=== PATIENT | female | born 1940 | race Caucasian/White ===

== ENCOUNTER → 2019-12-01 11:19 | Outpatient (CLI) | payer MEDICARE, OTHER, SELFPAY ==
[2019-12-01 12:37] LABS: Creatinine Urine Random 61.2 mg/dL
[2019-12-01 12:44] LABS: Alanine Aminotransferase 16 IU/L (<35); Albumin 4.3 g/dL (3.5-5.0); Albumin Globulin Ratio 1.8 (1.0-2.8); Alkaline Phosphatase 75 U/L (38-126); Aspartate Aminotransferase 23 IU/L (14-36); Bilirubin Total 0.8 mg/dL (0.2-1.3); Blood Urea Nitrogen 16 mg/dL (7-17); Calcium 9.8 mg/dL (8.4-10.2); Carbon Dioxide 30 mmol/L (22-32); Chloride 93 mmol/L (98-107); Cholesterol 209 mg/dL (140-199); Estimated Glomerular Filt Rate > 60.0 mL/min (>60); Globulin 2.4 g/dL (1.7-4.1); Glucose 94 mg/dL (80-110); HDL Cholesterol 75 mg/dL (40-60); HEMOLYSIS < 15 (0-50); LDL Cholesterol Calculated 119 mg/dL (<100); Potassium 5.4 mmol/L (3.4-5.1); Sodium 132 mmol/L (137-145); Total Protein 6.7 g/dL (6.3-8.2); Triglycerides 73 mg/dL (35-150)
[2019-12-01 12:55] LABS: Microalbumi Creatinin Ratio Ur 535.9 ug/mg CR (<30); Microalbumin Urine Random 32.8 mg/dL (0-1.6)
[2019-12-01 13:03] LABS: Free T3, Triiodothyronine Free 3.07 pg/mL (2.77-5.27); Free T4, Direct Thyroxine 0.95 ng/dL (0.78-2.19)
[2019-12-01 13:16] LABS: Thyroid Stimulating Hormone 2.73 uIU/mL (0.47-4.68)
== END ==
PROVIDERS: PCP Nurse Practitioner; Visit Provider Nurse Practitioner
DX: E78.5 Hyperlipidemia, unspecified (principal); I10 Essential (primary) hypertension; Z79.899 Other long term (current) drug therapy
CPT/HCPCS: 36415; 80053; 80061; 82043; 82570; 84439; 84443; 84481

== ENCOUNTER → 2020-03-22 09:39 | Outpatient (CLI) | payer MEDICARE, OTHER, SELFPAY ==
[2020-03-22 10:51] LABS: Cholesterol 188 mg/dL (140-199); HDL Cholesterol 82 mg/dL (40-60); LDL Cholesterol Calculated 95 mg/dL (<100); Triglycerides 53 mg/dL (35-150)
== END ==
PROVIDERS: PCP Nurse Practitioner; Referring Provider Nurse Practitioner; Visit Provider Nurse Practitioner
DX: E78.5 Hyperlipidemia, unspecified (principal); I10 Essential (primary) hypertension
CPT/HCPCS: 36415; 80061

== ENCOUNTER 2020-04-10 21:16 | Emergency (ER) | payer MEDICARE, OTHER, SELFPAY ==
[2020-04-10 21:36] VITALS: BP 222/91; PULSE 92; RESP 16; TEMP 36.5; O2SAT 97; BMI 26.4
[2020-04-10 21:45] VITALS: BP 211/82
[2020-04-10 22:23] LABS: RBC Urine None Seen (0-5/HPF)
--- NOTE | 2020-04-10 22:33 | ED.GENADULT ---
HPI - General Adult General Chief complaint: Urogenital-Female Stated complaint: Trying to Get Off Prescription Meds, High BP Time Seen by Provider: 04/10/20 22:08 Source: patient Mode of arrival: Ambulatory Limitations: no limitations History of Present Illness HPI narrative: Patient is a 79-year-old female. Somewhat difficult to obtain history from her and exactly why she is here in the emergency department. She states that the reason that she came into the emergency department speak she is having quite a bit of burning sensation in her vagina. This does not appear to be a new issue. There are multiple notes in the EMR from with her primary doctor and also armature tester for this issue. She has been prescribed estrogen cream and also Desipramine. She states she does not know why she was prescribed this last medication. She states she has talked with her armature tester who prescribed this medication and appears that she is being weaned off of this medication so she does not stop it abruptly. When asked or brought her to the emergency department this evening she states that it is the vaginal itching. She denies any dysuria. No back pain. No change of bowel habits. No fevers. She seems very fixated on why she had been prescribed the Desipramine in the 1st place. No chest pain or shortness of breath no headache. Related Data Home Medications Medication Instructions Recorded Confirmed aspirin 81 mg tablet,delayed 81 mg PO DAILY 10/14/19 02/16/20 release calcium vit d PO BID 10/14/19 02/16/20 flaxseed oil 1,000 mg capsule 2,000 mg PO DAILY cap 10/14/19 02/16/20 pravastatin 40 mg tablet 20 mg PO DAILY tab 01/11/20 02/16/20 Previous Rx's Medication Instructions Recorded lisinopril 40 mg tablet 40 mg PO DAILY #90 tab 12/07/19 docusate sodium 100 mg capsule 100 mg PO BID PRN #60 cap 01/11/20 estradiol 2 gram VAG .COMPLEX #42.5 gram 02/05/20 desipramine 10 mg tablet 10 mg PO BEDTIME 30 Days #30 tab 03/25/20 lidocaine 1 applictn TOP BID-QID PRN #113 04/10/20 gram Allergies Allergy/AdvReac Type Severity Reaction Status Date / Time No Known Drug Allergies Allergy Verified 02/16/20 09:53 Review of Systems Constitutional Constitutional: Denies fever(s) and Denies headache(s) ENT Ears, Nose, Mouth, and Throat: Denies headache(s) Cardiovascular Cardiovascular: Denies chest pain and Denies dyspnea Respiratory Respiratory: Denies dyspnea Gastrointestinal Gastrointestinal: Denies abdominal pain and Denies vomiting Genitourinary Genitourinary: Denies flank pain, Denies urinary hesitancy and Denies vaginal discharge Comments: Vaginal itching Musculoskeletal Musculoskeletal: Denies back pain and Denies arthralgias Integumentary/Breasts Skin/Breast: Denies rash Neurologic Neurologic: Denies behavioral changes and Denies headache(s) Psychiatric Psychiatric: Denies behavioral changes Hematologic/Lymphatic Hematologic/Lymphatic: Denies easy bleeding and Denies easy bruising Patient History Medical History Hyperlipidemia (Chronic) Measles (Resolved) Mumps (Resolved) Restless leg syndrome (Chronic ~2017) Skin cancer (Chronic) Social History Smoking Status: Former smoker Smoking Status: Former smoker Exam Initial Vital Signs Initial Vital Signs: Vital Signs Temperature 97.7 F 04/10/20 21:36 Pulse Rate 92 H 04/10/20 21:36 Respiratory Rate 16 04/10/20 21:36 Blood Pressure 222/91 H 04/10/20 21:36 Pulse Oximetry 97 04/10/20 21:36 Const General: cooperative and comfortable Resp Effort & Inspection: normal respiratory effort Cardio Rate: regular rate GI Inspection: non-distended Skin Lesions: no lesions Rashes: no rashes Neuro General: alert and awake Speech: speech normal Extrem General: normal to inspection Psych Appearance: grossly normal Course Orders Ordered: ED Orders 04/10/20 21:52 Ictotest Urine Stat Urine Culture Stat Urine Microscopic Stat Vital Signs Vital signs: Vital Signs - 8 hr 04/10/20 21:36 04/10/20 21:45 Temperature 97.7 F Pulse Rate 92 H Respiratory Rate 16 Blood Pressure 222/91 H Blood Pressure [Left Arm] 211/82 H Pulse Oximetry 97 Medical Decision Making Medical Records Medical records reviewed: Yes I reviewed the patient's medical records. Lab Data Lab results reviewed: Yes I reviewed the patient's lab results. Labs: Lab Results 04/10/20 Range/Units 21:52 Ur Bilirubin Confirm Negative (Negative) Urine RBC None seen (0-5/HPF) Urine WBC 10-30/hpf H (0-5/HPF) Urine Bacteria Few (2-10) H (None) Ur Culture Indicated? Specimen cultured Micro UA Comment * Urine Dip Bedside Urine Glucose 100 mg/dl Bedside Urine Bilirubin ++ 2 Bedside Urine Ketone +/- 5 Urine Specific [place] 1.030 Bedside Urine Occult Blood +/- Bedside Urine pH 5.5 Bedside Urine Protein + 30 Bedside Urine Urobilinogen - Negative Bedside Urine Nitrite - Negative Bedside Urine Leukocytes ++ 125 Esterase Point of care testing: Urine Dip Bedside Urine Glucose 100 mg/dl Bedside Urine Bilirubin ++ 2 Bedside Urine Ketone +/- 5 Urine Specific [place] 1.030 Bedside Urine Occult Blood +/- Bedside Urine pH 5.5 Bedside Urine Protein + 30 Bedside Urine Urobilinogen - Negative Bedside Urine Nitrite - Negative Bedside Urine Leukocytes ++ 125 Esterase MDM Narrative Medical decision making narrative: Had bacteria and white blood cells in her urinalysis however she is not describing any dysuria. The vaginal itching that brought her into the emergency department today per her admission is not new. I am unsure but has worsened recently. I feel we should wait for the urine culture to results before treating her with any antibiotics. Again it is very difficult to distinguish what brought her into the emergency department. She seemed very fixated this medication that which she states was prescribed to her by her armature tester provider for the itching that she has been having. It also appears that this medication is being weaned for her to stop it but given the nature the medication and should not be stopped abruptly. I did discuss this with her. She was also wondering why she had not had a referral in to see Urology given her symptoms. I informed her that she should talk with her primary doctor regarding this. Informed her that it sounded like she is being weaned off the medicine appropriately and she should continue to do this. We did discuss her urine informed her that we will wait for the culture to resolved for treatment any antibiotics. Will send her home with a prescription for lidocaine jelly to see if this does not potentially improve some of her symptoms. She is hypertensive however is not having chest pain or shortness of breath. Feel we can hold on further workup for this. Also feel that we could hold on a pelvic exam given the fact that the presenting symptoms today are not new when she does have documented issues such as a rectocele. Patient expressed understanding and agreement this plan. Discharge Plan Departure Patient Disposition: Home Clinical Impression: Itching of vagina Discharge Date/Time: 04/10/20 22:48 Activity Restrictions/Additional Instructions: Recommend that you take all of your medications as directed. I do recommend that tomorrow you contact your primary provider and also your armature tester provider for a follow-up. Your prescription was electronically transmitted to the [place] pharmacy. Return to the emergency department for any new or worsening symptoms Prescriptions: New lidocaine 4 % gel 1 applictn TOP BID-QID PRN (Reason: pain) Qty: 113 RF: 0 No Action lisinopril 40 mg tablet 40 mg PO DAILY Qty: 90 RF: 0 estradiol 0.01 % (0.1 mg/gram) cream 2 gram VAG .COMPLEX Qty: 42.5 RF: 1 desipramine 10 mg tablet 10 mg PO BEDTIME 30 Days Qty: 30 RF: 0 aspirin [Lo-Dose Aspirin] 81 mg tablet,delayed release (DR/EC) 81 mg PO DAILY RF: 0 flaxseed oil [[place]-3 Flaxseed Oil] 1,000 mg capsule 2,000 mg PO DAILY RF: 0 calcium vit d PO BID RF: 0 pravastatin 40 mg tablet 20 mg PO DAILY RF: 0 docusate sodium [Colace] 100 mg capsule 100 mg PO BID PRN (Reason: constipation) Qty: 60 RF: 11 Referrals: Laurel Bianchi ARNP [Primary Care Provider] -
[2020-04-10 22:36] LABS: Ictotest Urine Negative (Negative); WBC Urine 10-30/HPF (0-5/HPF)
[2020-04-10 22:37] LABS: Bacteria Urine Few (2-10); Culture Indicated Urine Specimen Cultured
== END 2020-04-10 22:48 | disposition home or self-care (01) ==
PROVIDERS: Emergency Provider Emergency Medicine; PCP Nurse Practitioner
DX: L29.2 Pruritus vulvae (principal)
CPT/HCPCS: 81003; 81015; 87086; 99282

== ENCOUNTER → 2020-06-15 10:26 | Outpatient (CLI) | payer MEDICARE, OTHER, SELFPAY ==
--- NOTE | 2020-06-15 10:27 | DI.MG.S_ITS ---
BILATERAL DIGITAL SCREENING MAMMOGRAM 3D/2D WITH CAD: 06/15/2020 CLINICAL: Routine screening. Comparison is made to exams dated: 02/02/2019 mammogram - [facility] and 06/12/2016 mammogram - [facility]. The tissue of both breasts is predominantly fatty. Current study was also evaluated with a Computer Aided Detection (CAD) system. No significant masses, calcifications, or other findings are seen in either breast. There has been no significant interval change. IMPRESSION: NEGATIVE There is no mammographic evidence of malignancy. A 1 year screening mammogram is recommended. This exam was interpreted at Station ID: [id number]. NOTE: For mammograms, a report in lay terms will be sent to the patient. Approximately 15% of breast malignancies will not be visualized mammographically. In the management of a palpable breast mass, a negative mammogram must not discourage biopsy of a clinically suspicious lesion. Electronically Signed By: Denia payne/mary:06/15/2020 16:04:05 letter sent: Normal Exam ACR BI-RADS Category 1: Negative 3341F
== END ==
PROVIDERS: PCP Nurse Practitioner; Referring Provider Nurse Practitioner; Visit Provider Nurse Practitioner
DX: Z12.31 Encounter for screening mammogram for malignant neoplasm of breast (principal)
CPT/HCPCS: 77063; 77067

== ENCOUNTER → 2020-06-27 15:30 | Outpatient (CLI) | payer MEDICARE, OTHER, SELFPAY ==
[2020-06-29 08:13] LABS: Candida species Negative (Negative); Gardnerella vaginalis Negative (Negative); Trichomoas vaginalis Negative (Negative)
== END ==
PROVIDERS: PCP Nurse Practitioner; Visit Provider Obstetrics & Gynecology
DX: N94.9 Unspecified condition associated with female genital organs and menstrual cycle (principal); R32 Unspecified urinary incontinence
CPT/HCPCS: 87077; 87086; 87186; 87480; 87510; 87660

== ENCOUNTER → 2020-10-03 13:20 | Outpatient (CLI) | payer MEDICARE, OTHER, SELFPAY | PROVIDERS: PCP Nurse Practitioner; Referring Provider Nurse Practitioner; Visit Provider Nurse Practitioner | DX: M85.88 Other specified disorders of bone density and structure, other site (principal); Z78.0 Asymptomatic menopausal state; Z87.891 Personal history of nicotine dependence | CPT/HCPCS: 77080 ==

== ENCOUNTER 2020-10-25 09:40 | Emergency (ER) | payer MEDICARE, OTHER, SELFPAY ==
[2020-10-25 09:40] VITALS: BP 196/86; PULSE 88; RESP 16; TEMP 36.6; O2SAT 96
--- NOTE | 2020-10-25 10:01 | ED_ITS ---
HPI - General Adult General Chief complaint: Abdominal Pain Stated complaint: Bowel movement issues Time Seen by Provider: 10/25/20 09:52 Source: patient Mode of arrival: Ambulatory Limitations: no limitations History of Present Illness HPI narrative: 79-year-old female here for evaluation which he states is constipation. States that approximately once a month she gets issues with constipation where she has to take MiraLax for approximately 5 days and then has a bowel movement. She states she has been on MiraLax for 3 days now and she feels like there is a large clump of stool down in her rectum. She has not tried any laxatives. She contacted her primary doctor who could not see her until this afternoon and she was instructed to go to the walk-in clinic we then sent her here to the emergency department. She denies any fevers. No belly pain. No prior abdominal surgeries. No nausea vomiting. Related Data Home Medications Medication Instructions Recorded Confirmed aspirin 81 mg tablet,delayed 81 mg PO DAILY 10/14/19 10/10/20 release calcium vit d PO BID 10/14/19 10/10/20 flaxseed oil 1,000 mg capsule 2,000 mg PO DAILY cap 10/14/19 10/10/20 polyethylene glycol 3350 17 17 gram PO DAILY 06/27/20 10/10/20 gram/dose oral powder Previous Rx's Medication Instructions Recorded estradiol 1 - 2 gram VAG .2-3XW #42.5 gram 09/20/20 lisinopril 40 mg tablet 40 mg PO DAILY #90 tab 09/20/20 pravastatin 40 mg tablet 20 mg PO DAILY #45 tab 09/20/20 varicella-zoster glycoE [id number] 0.5 ml IM ONCE #1 each 09/20/20 adj(PF) 50 mcg/0.5 mL IM susp, kit desipramine 10 mg tablet 10 mg PO BEDTIME #90 tab 09/22/20 amlodipine 5 mg tablet 5 mg PO DAILY #30 tab 10/10/20 Allergies Allergy/AdvReac Type Severity Reaction Status Date / Time lidocaine AdvReac Verified 10/10/20 10:52 Review of Systems Constitutional Constitutional: Denies fever(s) Gastrointestinal Gastrointestinal: Denies abdominal pain, Reports constipation, Denies nausea and Denies vomiting Genitourinary Genitourinary: Denies dysuria Genitourinary: Denies dysuria Musculoskeletal Musculoskeletal: Denies arthralgias and Denies myalgias Integumentary/Breasts Skin/Breast: Denies lesions and Denies rash Neurologic Neurologic: Denies behavioral changes Psychiatric Psychiatric: Denies behavioral changes Patient History Medical History Hyperlipidemia Measles Mumps Osteopenia Restless leg syndrome (~2017) Skin cancer Family History Mother Stroke Social History Smoking Status: Former smoker Smoking Status: Former smoker Substance Use Type: does not use Exam Initial Vital Signs Initial Vital Signs: Vital Signs Temperature 97.9 F 10/25/20 09:40 Pulse Rate 88 10/25/20 09:40 Respiratory Rate 16 10/25/20 09:40 Blood Pressure 196/86 H 10/25/20 09:40 Pulse Oximetry 96 10/25/20 09:40 Const General: cooperative and comfortable Limitations: mental status not altered [facility] Head: normal to inspection and normocephalic GI Inspection: non-distended Palpation: soft Skin Lesions: no lesions Rashes: no rashes Neuro General: patient alert and patient awake Cognition: normal cognition Extrem General: capillary refill normal Course Orders Ordered: Discontinued Medications Sodium Biphosphate/Sodium Phosphate (Fleets Enema) 1 each WI NOW ONE Stop: 10/25/20 10:03 Last Admin: 10/25/20 10:11 Dose: 1 each Documented by: SANDHYA Vital Signs Vital signs: Vital Signs - 8 hr 10/25/20 09:40 Temperature 97.9 F Pulse Rate 88 Respiratory Rate 16 Blood Pressure 196/86 H Pulse Oximetry 96 Medical Decision Making [facility] Narrative Medical decision making narrative: Has no belly pain. No fevers. States she feels like there is a large stool burden down in her rectum. I initially held on a rectal exam and we discussed options which included a enema verses disimpaction. We decided to do an enema to start with. She was given a fleets enema and had a bowel movement. She reports a great improvement of her symp toms. I will hold on any abdominal imaging for now. We discussed return precautions. She expressed understanding and agreement. Discharge Plan Departure Patient Disposition: Home Clinical Impression: Constipation Instructions: DI for Constipation Activity Restrictions/Additional Instructions: Continue all of your medications as directed. Continue to take the laxatives like we discussed. Contact your primary provider for follow-up. Return to the emergency department for any new or worsening symptoms Prescriptions: No Action Shingrix (PF) 50 mcg/0.5 mL suspension for reconstitution 0.5 ml IM ONCE Qty: 1 RF: 0 desipramine 10 mg tablet 10 mg PO BEDTIME Qty: 90 RF: 3 aspirin [Lo-Dose Aspirin] 81 mg tablet,delayed release (DR/EC) 81 mg PO DAILY RF: 0 flaxseed oil [[place]-3 Flaxseed Oil] 1,000 mg capsule 2,000 mg PO DAILY RF: 0 calcium vit d PO BID RF: 0 polyethylene glycol 3350 [Miralax] 17 gram/dose powder 17 gram PO DAILY RF: 0 estradiol 0.01 % (0.1 mg/gram) cream 1 - 2 gram VAG .2-3XW Qty: 42.5 RF: 3 lisinopril 40 mg tablet 40 mg PO DAILY Qty: 90 RF: 3 pravastatin 40 mg tablet 20 mg PO DAILY Qty: 45 RF: 2 amlodipine 5 mg tablet 5 mg PO DAILY Qty: 30 RF: 3 Referrals: Laurel Bianchi ARNP [Primary Care Provider] -
[2020-10-25] MEDS: FLEETS ENEMA 1 EACH PR (10:11)
--- NOTE | 2020-10-25 11:09 | PC.NURSE ---
1020 Patient had moderate amount of stool in commode and reports relief. Ready to go home.
== END 2020-10-25 10:45 | disposition home or self-care (01) ==
PROVIDERS: Emergency Provider Emergency Medicine; PCP Nurse Practitioner
DX: K59.00 Constipation, unspecified (principal)
CPT/HCPCS: 99281

== ENCOUNTER → 2021-01-23 10:43 | Outpatient (CLI) | payer MEDICARE, OTHER, SELFPAY ==
[2021-01-23 12:13] LABS: Alanine Aminotransferase 15 IU/L (<35); Albumin 4.1 g/dL (3.5-5.0); Albumin Globulin Ratio 1.5 (1.0-2.8); Alkaline Phosphatase 73 U/L (38-126); Aspartate Aminotransferase 26 IU/L (14-36); BUN Creatinine Ratio 17.8 (6-22); Bilirubin Total 0.4 mg/dL (0.2-1.3); Blood Urea Nitrogen 13 mg/dL (7-17); Calcium 9.3 mg/dL (8.4-10.2); Carbon Dioxide 31 mmol/L (22-32); Chloride 96 mmol/L (98-107); Cholesterol 197 mg/dL (140-199); Estimated Glomerular Filt Rate > 60.0 mL/min (>60); Globulin 2.7 g/dL (1.7-4.1); Glucose 108 mg/dL (80-110); HDL Cholesterol 76 mg/dL (40-60); HEMOLYSIS < 15 (0-50); LDL Cholesterol Calculated 106 mg/dL (<100); Potassium 4.5 mmol/L (3.4-5.1); Sodium 130 mmol/L (137-145); Total Protein 6.8 g/dL (6.3-8.2); Triglycerides 74 mg/dL (35-150)
[2021-01-23 12:54] LABS: Free T3, Triiodothyronine Free 3.26 pg/mL (2.77-5.27); Free T4, Direct Thyroxine 1.06 ng/dL (0.78-2.19)
[2021-01-23 13:07] LABS: Thyroid Stimulating Hormone 3.27 uIU/mL (0.47-4.68)
== END ==
PROVIDERS: PCP Nurse Practitioner; Referring Provider Nurse Practitioner; Visit Provider Nurse Practitioner
DX: E78.5 Hyperlipidemia, unspecified (principal); I10 Essential (primary) hypertension; R41.3 Other amnesia; Z79.899 Other long term (current) drug therapy
CPT/HCPCS: 36415; 80053; 80061; 84439; 84443; 84481

== ENCOUNTER → 2021-06-16 10:41 | Outpatient (CLI) | payer MEDICARE, OTHER, SELFPAY ==
--- NOTE | 2021-06-16 10:42 | DI.MG.S_ITS ---
BILATERAL DIGITAL SCREENING MAMMOGRAM 3D/2D WITH CAD: 06/16/2021 CLINICAL: Routine screening. Comparison is made to [facility], [facility] - [facility], and 06/12/2016 mammogram - [facility]. There are scattered fibroglandular elements in both breasts. Current study was also evaluated with a Computer Aided Detection (CAD) system. No significant masses, calcifications, or other findings are seen in either breast. There has been no significant interval change. IMPRESSION: NEGATIVE There is no mammographic evidence of malignancy. A 1 year screening mammogram is recommended. This exam was interpreted at Station ID: [id number]. NOTE: For mammograms, a report in lay terms will be sent to the patient. Approximately 15% of breast malignancies will not be visualized mammographically. In the management of a palpable breast mass, a negative mammogram must not discourage biopsy of a clinically suspicious lesion. Electronically Signed By: Bong macias/mary:06/16/2021 14:36:48 letter sent: Normal Exam ACR BI-RADS Category 1: Negative 3341F
== END ==
PROVIDERS: PCP Nurse Practitioner; Referring Provider Nurse Practitioner; Visit Provider Nurse Practitioner
DX: Z12.31 Encounter for screening mammogram for malignant neoplasm of breast (principal)
CPT/HCPCS: 77063; 77067

== ENCOUNTER → 2021-12-13 10:52 | Outpatient (CLI) | payer MEDICARE, OTHER, SELFPAY ==
[2021-12-13 12:02] LABS: COVID19 -Nasal RAPID Negative (Negative)
== END ==
PROVIDERS: PCP Nurse Practitioner; Visit Provider Nurse Practitioner Family
DX: Z20.822 Contact with and (suspected) exposure to COVID-19 (principal)
CPT/HCPCS: 87635

== ENCOUNTER → 2021-12-13 15:39 | Outpatient (CLI) | payer MEDICARE, OTHER, SELFPAY ==
--- NOTE | 2021-12-13 15:44 | DI.RAD.S_ITS ---
PROCEDURE: XR CHEST 2V INDICATIONS: Cough TECHNIQUE: 2 views of the chest were acquired. COMPARISON: None. FINDINGS: Surgical changes and devices: None. Lungs and pleura: Lungs are clear. No pleural effusions or pneumothorax. Mediastinum: Mediastinal contours are normal. Heart size is normal. Bones and chest wall: No suspicious bony abnormalities. Age-appropriate bony degenerative changes are seen. S-shaped scoliotic curvature is seen. Accentuated thoracic kyphosis is seen. Soft tissues appear unremarkable. IMPRESSION: No acute cardiopulmonary process is seen. No focal infiltrates are seen. Dictated by: Arturo Parks M.D. on 12/13/2021 at 14:58 Approved by: Arturo Parks M.D. on 12/13/2021 at 14:58
== END ==
PROVIDERS: PCP Nurse Practitioner; Referring Provider Nurse Practitioner Family; Visit Provider Nurse Practitioner Family
DX: R05.9 Cough, unspecified (principal); Z20.822 Contact with and (suspected) exposure to COVID-19
CPT/HCPCS: 71046; 87635

== ENCOUNTER → 2021-12-26 12:57 | Outpatient (CLI) | payer MEDICARE, OTHER, SELFPAY ==
[2021-12-26 13:24] LABS: Hemoglobin A1C% w Est Avg Glu 5.6 % (4.0-6.0)
[2021-12-26 13:46] LABS: Alanine Aminotransferase 18 IU/L (<35); Albumin 4.4 g/dL (3.5-5.0); Albumin Globulin Ratio 1.5 (1.0-2.8); Alkaline Phosphatase 68 U/L (38-126); Aspartate Aminotransferase 25 IU/L (14-36); BUN Creatinine Ratio 16.9 (6-22); Bilirubin Total 0.7 mg/dL (0.2-1.3); Blood Urea Nitrogen 12 mg/dL (7-17); Calcium 9.8 mg/dL (8.4-10.2); Carbon Dioxide 31 mmol/L (22-32); Chloride 97 mmol/L (98-107); Cholesterol 200 mg/dL (140-199); Estimated Glomerular Filt Rate > 60.0 mL/min (>60); Globulin 2.9 g/dL (1.7-4.1); Glucose 106 mg/dL (80-110); HDL Cholesterol 88 mg/dL (40-60); HEMOLYSIS < 15 (0-50); LDL Cholesterol Calculated 98 mg/dL (<100); Potassium 4.7 mmol/L (3.4-5.1); Sodium 133 mmol/L (137-145); Total Protein 7.3 g/dL (6.3-8.2); Triglycerides 72 mg/dL (35-150)
[2021-12-26 13:59] LABS: Free T3, Triiodothyronine Free 2.98 pg/mL (2.77-5.27); Free T4, Direct Thyroxine 1.03 ng/dL (0.78-2.19)
[2021-12-26 14:13] LABS: Thyroid Stimulating Hormone 2.26 uIU/mL (0.47-4.68)
[2021-12-26 17:14] LABS: Creatinine Urine Random 151.6 mg/dL
[2021-12-26 17:19] LABS: Microalbumi Creatinin Ratio Ur 9.2 ug/mg CR (<30); Microalbumin Urine Random 1.4 mg/dL (0-1.6)
== END ==
PROVIDERS: PCP Nurse Practitioner; Referring Provider Nurse Practitioner; Visit Provider Nurse Practitioner
DX: Z79.899 Other long term (current) drug therapy (principal); I10 Essential (primary) hypertension; E78.2 Mixed hyperlipidemia; K59.00 Constipation, unspecified; Z13.1 Encounter for screening for diabetes mellitus
CPT/HCPCS: 36415; 80053; 80061; 82043; 82570; 83036; 84439; 84443; 84481

== ENCOUNTER → 2022-06-20 10:42 | Outpatient (CLI) | payer MEDICARE, OTHER, SELFPAY ==
--- NOTE | 2022-06-20 10:43 | DI.MG.S_ITS ---
BILATERAL DIGITAL SCREENING MAMMOGRAM 3D/2D WITH CAD: 06/20/2022 CLINICAL: Routine screening. Comparison is made to exams dated: 06/16/2021 mammogram and 06/15/2020 mammogram - [facility]. There are scattered fibroglandular elements in both breasts. Current study was also evaluated with a Computer Aided Detection (CAD) system. No significant masses, calcifications, or other findings are seen in either breast. There has been no significant interval change. IMPRESSION: NEGATIVE There is no mammographic evidence of malignancy. A 1 year screening mammogram is recommended. Based on the Tyrer Cuzick model (a risk assessment model) the patient's lifetime risk is 1.5% and her 10 year risk is 0.0%. According to the ACR, ACS, and NCCN guidelines, an annual breast MRI exam along with mammogram is recommended if the patient's lifetime risk is 20% or greater. This exam was interpreted at Station ID: [id number]. NOTE: For mammograms, a report in lay terms will be sent to the patient. Approximately 15% of breast malignancies will not be visualized mammographically. In the management of a palpable breast mass, a negative mammogram must not discourage biopsy of a clinically suspicious lesion. Electronically Signed By: Cayden hope/mary:06/20/2022 17:22:25 letter sent: Normal Exam ACR BI-RADS Category 1: Negative 3341F
== END ==
PROVIDERS: PCP Nurse Practitioner; Referring Provider Nurse Practitioner; Visit Provider Nurse Practitioner
DX: Z12.31 Encounter for screening mammogram for malignant neoplasm of breast (principal)
CPT/HCPCS: 77063; 77067

== ENCOUNTER 2022-06-29 09:29 | Emergency (ER) | payer MEDICARE, OTHER, SELFPAY ==
[2022-06-29 10:05] VITALS: BP 184/77; PULSE 65; RESP 18; TEMP 36.5; O2SAT 99
== END 2022-06-29 10:56 | disposition left against medical advice (07) ==
PROVIDERS: Emergency Provider Emergency Medicine; PCP Nurse Practitioner
CPT/HCPCS: 99281

== ENCOUNTER → 2022-08-20 13:50 | Outpatient (CLI) | payer MEDICARE, OTHER, SELFPAY ==
[2022-08-20 15:32] LABS: Appearance Urine UA CLOUDY; Bilirubin Urine UA NEGATIVE (NEGATIVE); Color Urine UA YELLOW; Glucose Urine UA NEGATIVE (Negative); Ketones Urine UA NEGATIVE (NEGATIVE); Leukocyte Esterase Urine UA 2+ (NEGATIVE); Nitrite Urine UA NEGATIVE (Negative); Occult Blood Urine UA TRACE-INTACT (Negative); Protein Urine UA TRACE (Negative); Urobilinogen Urine UA 0.2 E.U./dL (0.2)
[2022-08-20 15:44] LABS: Amorphous Sediment Urine 1+; Bacteria Urine Many (>30); Culture Indicated Urine Specimen Cultured; RBC Urine 0-1/HPF (0-5/HPF); WBC Urine 5-10/HPF (0-5/HPF)
[2022-08-20 15:45] LABS: pH Urine UA 6.5 (4.5-8.0)
== END ==
PROVIDERS: PCP Nurse Practitioner; Referring Provider Nurse Practitioner; Visit Provider Nurse Practitioner
DX: M54.9 Dorsalgia, unspecified (principal); N94.9 Unspecified condition associated with female genital organs and menstrual cycle; R35.0 Frequency of micturition
CPT/HCPCS: 81001; 87077; 87086

== ENCOUNTER → 2022-12-04 11:55 | Outpatient (CLI) | payer MEDICARE, OTHER, SELFPAY ==
[2022-12-04 13:41] LABS: Alanine Aminotransferase 17 IU/L (<35); Albumin 3.9 g/dL (3.5-5.0); Albumin Globulin Ratio 1.3 (1.0-2.8); Alkaline Phosphatase 74 U/L (38-126); Aspartate Aminotransferase 22 IU/L (14-36); BUN Creatinine Ratio 21.3 (6-22); Bilirubin Total 0.4 mg/dL (0.2-1.3); Blood Urea Nitrogen 13 mg/dL (7-17); Calcium 8.8 mg/dL (8.4-10.2); Carbon Dioxide 32 mmol/L (22-32); Chloride 96 mmol/L (98-107); Cholesterol 208 mg/dL (140-199); Estimated Glomerular Filt Rate > 60 mL/min (>60); Globulin 3.1 g/dL (1.7-4.1); Glucose 99 mg/dL (80-110); HDL Cholesterol 68 mg/dL (40-60); HEMOLYSIS < 15 (0-50); LDL Cholesterol Calculated 122 mg/dL (<100); Potassium 4.5 mmol/L (3.4-5.1); Sodium 133 mmol/L (137-145); Triglycerides 90 mg/dL (35-150)
[2022-12-04 14:17] LABS: Free T3, Triiodothyronine Free 3.08 pg/mL (2.77-5.27); Free T4, Direct Thyroxine 0.89 ng/dL (0.78-2.19)
[2022-12-04 14:30] LABS: Thyroid Stimulating Hormone 3.05 uIU/mL (0.47-4.68)
[2022-12-04 15:11] LABS: Microalbumin Urine Random < 0.6 mg/dL (0-1.6)
== END ==
PROVIDERS: PCP Nurse Practitioner; Referring Provider Nurse Practitioner; Visit Provider Nurse Practitioner
DX: E78.2 Mixed hyperlipidemia (principal); I10 Essential (primary) hypertension; K59.00 Constipation, unspecified; M85.89 Other specified disorders of bone density and structure, multiple sites; Z79.899 Other long term (current) drug therapy
CPT/HCPCS: 36415; 80053; 80061; 82043; 82570; 84439; 84443; 84481

== ENCOUNTER 2022-12-12 11:11 | Emergency (ER) | payer MEDICARE, OTHER, SELFPAY ==
[2022-12-12 11:20] VITALS: BP 160/70; PULSE 77; RESP 16; TEMP 36.1; O2SAT 99; BMI 28.3
== END 2022-12-12 11:56 | disposition left against medical advice (07) ==
PROVIDERS: Emergency Provider Emergency Medicine; PCP Nurse Practitioner
DX: L60.0 Ingrowing nail (principal)
CPT/HCPCS: 99281

== ENCOUNTER → 2023-06-21 12:58 | Outpatient (CLI) | payer MEDICARE, OTHER, SELFPAY ==
--- NOTE | 2023-06-21 | DI.MG.S_ITS ---
BILATERAL DIGITAL SCREENING MAMMOGRAM 3D/2D WITH CAD: 06/21/2023 CLINICAL: Routine screening. Comparison is made to exams dated: 06/20/2022 mammogram, 06/16/2021 mammogram, and 06/15/2020 mammogram - [facility]. There are scattered areas of fibroglandular density in both breasts (category b / 25%-50% glandular tissue). Current study was also evaluated with a Computer Aided Detection (CAD) system. No significant masses, calcifications, or other findings are seen in either breast. There has been no significant interval change. IMPRESSION: NEGATIVE There is no mammographic evidence of malignancy. A 1 year screening mammogram is recommended. Based on the Tyrer Cuzick model (a risk assessment model) the patient's lifetime risk is 0.7% and her 10 year risk is 0.0%. According to the ACR, ACS, and NCCN guidelines, an annual breast MRI exam along with mammogram is recommended if the patient's lifetime risk is 20% or greater. This exam was interpreted at Station ID: [id number]. NOTE: For mammograms, a report in lay terms will be sent to the patient. Approximately 15% of breast malignancies will not be visualized mammographically. In the management of a palpable breast mass, a negative mammogram must not discourage biopsy of a clinically suspicious lesion. Electronically Signed By: Alvarado bush/mary:06/21/2023 14:51:31 letter sent: Normal Exam ACR BI-RADS Category 1: Negative 3341F
== END ==
PROVIDERS: PCP Nurse Practitioner; Referring Provider Nurse Practitioner; Visit Provider Nurse Practitioner
DX: Z12.31 Encounter for screening mammogram for malignant neoplasm of breast (principal)
CPT/HCPCS: 77063; 77067

== ENCOUNTER 2023-08-21 10:07 | Emergency (ER) | payer MEDICARE, OTHER, SELFPAY ==
[2023-08-21 10:11] VITALS: BP 200/81; PULSE 76; RESP 14; TEMP 36.7; O2SAT 98; BMI 27.3
--- NOTE | 2023-08-21 10:12 | DI.RAD.S_ITS ---
PROCEDURE: XR WRIST LT MIN 3V INDICATIONS: pain/ redness ulnar styloid pain TECHNIQUE: 4 views of the wrist were acquired. COMPARISON: None. FINDINGS: Bones: No fractures or dislocations. No suspicious bony lesions. Degenerative joint disease, severe at the 1st carpometacarpal joint and moderate at the triscaphe joint. There is triangular fibrocartilage calcification and calcification of the lunotriquetral ligament. Scaphoid view: Scaphoid is intact. Soft tissues: No suspicious soft tissue calcifications. Soft tissue swelling. IMPRESSION: 1. No acute osseous abnormalities. 2. Severe osteoarthritis. 3. Triangular fibrocartilage calcification and calcification of the lunotriquetral ligament. Dictated by: Adrianne Ferguson M.D. on 08/21/2023 at 11:06 Approved by: Adrianne Ferguson M.D. on 08/21/2023 at 11:10
--- NOTE | 2023-08-21 10:12 | ED.GENADULT ---
HPI - General Adult General Chief complaint: Extremity Problem,Nontraumatic Stated complaint: LT wrist injury poss broken Time Seen by Provider: 08/21/23 10:11 Source: patient Mode of arrival: Ambulatory Limitations: no limitations History of Present Illness HPI narrative: 82-year-old female who is here for evaluation of approximately 4 days of left wrist pain. There was no specific injury however the past 4 days she has noticed some redness and a small amount of swelling. She is stable to flex and extend. She denies falling. Denies hitting it. No elbow pain. No fevers. She states she does occasionally fall been wanted to make sure that this redness and swelling was not a fracture because it was not improving. Related Data Home Medications Medication Instructions Recorded Confirmed sennosides 8.6 mg tablet (senna) 17.2 mg PO BEDTIME 01/31/21 12/04/22 L. rhamnosus GG 10 billion cap PO 12/26/22 [id number] 70 mg-fish oil 240 mg capsule ([employer] Pro-Well 3-In-1) calcium and vit d3 supplements See Rx Instructions PO BID 12/26/22 Previous Rx's Medication Instructions Recorded amlodipine 5 mg tablet See Rx Instructions .Route 12/04/22 .COMPLEX #90 tabs aspirin 81 mg tablet,delayed 81 mg PO DAILY #90 tabs 12/04/22 release desipramine 10 mg tablet 10 mg PO BEDTIME #90 tabs 12/04/22 estradiol 0.01% (0.1 mg/gram) 1 - 2 g vaginal .2-3XW #42.5 grams 12/04/22 vaginal cream flaxseed oil 1,000 mg capsule 2,000 mg PO DAILY #180 caps 12/04/22 (Reader-3 Flaxseed Oil) lisinopril 40 mg tablet 40 mg PO DAILY #90 tabs 12/04/22 pravastatin 40 mg tablet 20 mg PO DAILY 90 days #45 tabs 12/04/22 docusate sodium 100 mg capsule 100 mg PO BID #180 caps 12/26/22 (Colace) Allergies Allergy/AdvReac Type Severity Reaction Status Date / Time lidocaine AdvReac Verified 08/21/23 10:10 Review of Systems Constitutional Constitutional: Reports system reviewed and no additional complaints, except as documented Musculoskeletal Musculoskeletal: Reports system reviewed and no additional complaints, except as documented Integumentary/Breasts Skin/Breast: Reports system reviewed and no additional complaints, except as documented Neurologic Neurologic: Reports system reviewed and no additional complaints, except as documented Patient History Medical History Hyperlipidemia Measles Memory deficit Mumps Osteopenia Restless leg syndrome (~2017) Skin cancer White coat syndrome with diagnosis of hypertension Family History Mother Stroke Social History Smoking Status: Former smoker Smoking Status: Former smoker tobacco type: cigarettes alcohol intake frequency: 0-2 drinks per day Substance Use Type: does not use Exam Initial Vital Signs Initial Vital Signs: Vital Signs Temperature 98.1 F 08/21/23 10:11 Pulse Rate 76 08/21/23 10:11 Respiratory Rate 14 08/21/23 10:11 Blood Pressure 200/81 H 08/21/23 10:11 Pulse Oximetry 98 08/21/23 10:11 Oxygen Delivery Method Room Air 08/21/23 10:11 Cardio Pulses: radial pulses present on the left Skin Other: Slight redness over the dorsum of the left wrist over the ulnar styloid. Extrem Other: Very small amount of swelling over the dorsum of the wrist ulnar styloid. She is no left elbow pain. No left hand pain. She can flex and extend but it is somewhat limited because of discomfort. Course Orders Ordered: ED Orders 08/21/23 10:12 XR wrist LT min 3V Stat Vital Signs Vital signs: Vital Signs - 8 hr 08/21/23 10:11 08/21/23 10:33 08/21/23 11:22 Temperature 98.1 F Pulse Rate 76 70 Respiratory Rate 14 Blood Pressure 200/81 H 168/71 H 169/76 H Pulse Oximetry 98 98 Oxygen Delivery Method Room Air Room Air Medical Decision Making Imaging Data Extremity x-ray #1: Radiologist's Impression: PROCEDURE:? XR WRIST LT MIN 3V ? INDICATIONS: pain/ redness ulnar styloid pain ? TECHNIQUE:? 4 views of the wrist were acquired.? ? COMPARISON:? None. ? FINDINGS:? ? Bones:? No fractures or dislocations.? No suspicious bony lesions.? Degenerative joint disease, severe at the 1st carpometacarpal joint and moderate at the triscaphe joint.? There is triangular fibrocartilage calcification and calcification of the lunotriquetral ligament.? ? Scaphoid view:? Scaphoid is intact. ? Soft tissues:? No suspicious soft tissue calcifications.? Soft tissue swelling. ? IMPRESSION:? ? 1. No acute osseous abnormalities. 2. Severe osteoarthritis. 3. Triangular fibrocartilage calcification and calcification of the lunotriquetral ligament.? MDM Narrative Medical decision making narrative: Prior to my final evaluation of the patient into tell her that her x-ray showed no acute pathology the patient stated that she had been here in the emergency department long enough and wanted to leave. She did leave without the results of her x-ray or any return precautions or discharge instructions. Her x-ray did not show any signs of fracture. I have low suspicion this is a septic joint. No indication for antibiotics. Discharge Plan Departure Patient Disposition: Left Against Medical Advice Clinical Impression: Pain in left wrist Prescriptions: No Action calcium and vit d3 supplements See Rx Instructions PO BID Rx Instructions: Calcium 600mg tab with vitamin D3 2000iu caps twice per day orally twice a day; docusate sodium [Colace] 100 mg capsule 100 mg PO BID Qty: 180 3RF Rx Instructions: Take 1 capsules twice daily routinely for constipation prevention [employer] Pro-Well 3-In-1 10 billion [id number] capsule PO amlodipine 5 mg tablet See Rx Instructions .ROUTE .COMPLEX Qty: 90 3RF Dose Instruction: TAKE ONE TABLET BY MOUTH ONE TIME DAILY FOR BLOOD PRESSURE GOAL OF <140/90 Rx Instructions: TAKE ONE TABLET BY MOUTH ONE TIME DAILY FOR BLOOD PRESSURE GOAL OF <140/90 aspirin 81 mg tablet,delayed release (DR/EC) 81 mg PO DAILY Qty: 90 3RF desipramine 10 mg tablet 10 mg PO BEDTIME Qty: 90 3RF Rx Instructions: Take 1 tab at bedtime daily for your overactive bladder estradiol 0.01 % (0.1 mg/gram) cream 1 - 2 g VAG .2-3XW Qty: 42.5 3RF Rx Instructions: Apply small amount vaginally and to external genitalia 2-3 times weekly. flaxseed oil [Reader-3 Flaxseed Oil] 1,000 mg capsule 2,000 mg PO DAILY Qty: 180 3RF lisinopril 40 mg tablet 40 mg PO DAILY Qty: 90 3RF Rx Instructions: Take 1 tablet by mouth each evening for BP pravastatin 40 mg tablet 20 mg PO DAILY 90 Days Qty: 45 3RF Rx Instructions: Take 1/2 tablet by mouth each evening for high lipids/cholesterol. sennosides [senna] 8.6 mg tablet 17.2 mg PO BEDTIME Stand Alone Forms: Against Medical Advice
[2023-08-21 10:33] VITALS: BP 168/71
[2023-08-21 11:22] VITALS: BP 169/76; PULSE 70; O2SAT 98
== END 2023-08-21 11:23 | disposition left against medical advice (07) ==
PROVIDERS: Emergency Provider Emergency Medicine; PCP Nurse Practitioner
DX: M25.532 Pain in left wrist (principal); Z53.29 Procedure and treatment not carried out because of patient's decision for other reasons
CPT/HCPCS: 73110; 99282; 99283

== ENCOUNTER → 2024-01-21 09:19 | Outpatient (CLI) | payer MEDICARE, OTHER, SELFPAY ==
[2024-01-21 11:01] LABS: Alanine Aminotransferase 17 IU/L (<35); Albumin 4.3 g/dL (3.5-5.0); Albumin Globulin Ratio 1.3 (1.0-2.8); Alkaline Phosphatase 85 U/L (38-126); Aspartate Aminotransferase 25 IU/L (14-36); BUN Creatinine Ratio 22.7 (6-22); Bilirubin Total 0.6 mg/dL (0.2-1.3); Blood Urea Nitrogen 15 mg/dL (7-17); Calcium 9.1 mg/dL (8.4-10.2); Carbon Dioxide 29 mmol/L (22-32); Chloride 96 mmol/L (98-107); Cholesterol 208 mg/dL (140-199); Estimated Glomerular Filt Rate > 60 mL/min (>60); Globulin 3.2 g/dL (1.7-4.1); Glucose 110 mg/dL (80-110); HDL Cholesterol 60 mg/dL (40-60); HEMOLYSIS < 15 (0-50); LDL Cholesterol Calculated 124 mg/dL (<100); Potassium 4.8 mmol/L (3.4-5.1); Sodium 133 mmol/L (137-145); Total Protein 7.5 g/dL (6.3-8.2); Triglycerides 121 mg/dL (35-150)
[2024-01-21 11:14] LABS: Creatinine Urine Random 127.2 mg/dL
[2024-01-21 11:17] LABS: Free T3, Triiodothyronine Free 4.01 pg/mL (2.77-5.27); Free T4, Direct Thyroxine 0.93 ng/dL (0.78-2.19)
[2024-01-21 11:31] LABS: Microalbumin Urine Random 1.4 mg/dL (0-1.6)
[2024-01-21 11:31] LABS: Thyroid Stimulating Hormone 3.02 uIU/mL (0.47-4.68)
== END ==
PROVIDERS: PCP Nurse Practitioner; Referring Provider Nurse Practitioner; Visit Provider Nurse Practitioner
DX: E78.2 Mixed hyperlipidemia (principal); M85.89 Other specified disorders of bone density and structure, multiple sites; I10 Essential (primary) hypertension; Z79.899 Other long term (current) drug therapy
CPT/HCPCS: 36415; 80053; 80061; 82043; 82570; 84439; 84443; 84481

== ENCOUNTER → 2025-06-18 13:33 | Outpatient (CLI) | payer MEDICARE, OTHER, SELFPAY ==
[2025-06-18 14:07] LABS: Hematocrit 39.7 % (36-46); Hemoglobin 13.4 g/dL (12.0-16.0); Mean Corpuscular HGB Conc 33.9 % (30-36); Mean Corpuscular Hemoglobin 29.9 PG (26-34); Mean Corpuscular Volume 88.2 fL (80-100); Platelet Count 369 X10^3/uL (150-400)
[2025-06-18 14:26] LABS: Alanine Aminotransferase 17 IU/L (<35); Albumin 4.5 g/dL (3.5-5.0); Albumin Globulin Ratio 1.7 (1.0-2.8); Alkaline Phosphatase 96 U/L (38-126); Blood Urea Nitrogen 12 mg/dL (7-17); Calcium 9.9 mg/dL (8.4-10.2); Carbon Dioxide 29 mmol/L (22-32); Chloride 93 mmol/L (98-107); Cholesterol 206 mg/dL (140-199); Estimated Glomerular Filt Rate > 60 mL/min (>60); Globulin 2.7 g/dL (1.7-4.1); Glucose 105 mg/dL (70-99); HDL Cholesterol 54 mg/dL (40-60); HEMOLYSIS < 15 (0-50); Potassium 4.8 mmol/L (3.4-5.1); Sodium 129 mmol/L (137-145); Total Protein 7.2 g/dL (6.3-8.2); Triglycerides 175 mg/dL (35-150)
== END ==
PROVIDERS: PCP Family Medicine; Referring Provider Family Medicine; Visit Provider Family Medicine
DX: E78.2 Mixed hyperlipidemia (principal); I10 Essential (primary) hypertension; R41.3 Other amnesia
CPT/HCPCS: 36415; 80053; 80061; 85027